=== PATIENT | female | born 1950 | race Caucasian/White ===

== ENCOUNTER 2023-08-04 06:26 | Day surgery (SDC) | payer BC, MEDICAID ==
[~2023-08-04] VITALS: Ht 162.6 cm; Wt 74.4 kg
[~2023-08-04 06:26] MED LIST: ACETAMINOPHEN 500 MG TABLET PO ONE; CEFAZOLIN SOD 2 GM in D5W 50 ML IV ONE; CELECOXIB 200 MG CAPSULE PO ONE; GABAPENTIN 400 MG CAPSULE PO ONE; ONDANSETRON 4 MG ODT TAB PO ONE; SCOPOLAMINE HYDROBROMIDE 1 MG PATCH .72 H (TRANSDERM-SCOP) TD ONE; VANCOMYCIN HCL 1,000 MG in NS 250 ML IV ONE; oxyCODONE HCL 10 MG TAB.ER.12H PO ONE
[2023-08-04] MEDS ORDERED: ONDANSETRON 4 MG ODT TAB ONE (06:43)
[2023-08-04] MEDS ORDERED: ACETAMINOPHEN 500 MG TABLET ONE (06:43)
[2023-08-04] MEDS ORDERED: SCOPOLAMINE HYDROBROMIDE 1 MG PATCH .72 H (TRANSDERM-SCOP) TD ONE ×2 (06:44→07:00)
[2023-08-04] MEDS ORDERED: GABAPENTIN 400 MG CAPSULE ONE (06:44)
[2023-08-04] MEDS ORDERED: oxyCODONE HCL 10 MG TAB.ER.12H PO ONE ×2 (06:45→07:00)
[2023-08-04] MEDS ORDERED: CELECOXIB 200 MG CAPSULE ONE (06:45)
[2023-08-04] MEDS ORDERED: VANCOMYCIN HCL 1,000 MG in NS 250 ML IV ONE (07:00)
[2023-08-04] MEDS ORDERED: CEFAZOLIN SOD 2 GM in D5W 50 ML IV ONE (07:00)
[2023-08-04] MEDS ORDERED: CELECOXIB 200 MG CAPSULE PO ONE (07:00)
[2023-08-04] MEDS ORDERED: ONDANSETRON 4 MG ODT TAB PO ONE (07:00)
[2023-08-04] MEDS ORDERED: GABAPENTIN 400 MG CAPSULE PO ONE (07:00)
[2023-08-04] MEDS ORDERED: ACETAMINOPHEN 500 MG TABLET PO ONE (07:00)
[2023-08-04 09:51] VITALS: PULSE 64; RESP 20; TEMP 97.3; O2SAT 100
[2023-08-04] MEDS ORDERED: LR 1,000 ML IV.SOLN IV ONE (10:36)
[2023-08-04] MEDS ORDERED: EPINEPHRINE HCL/PF 1 MG/ML AMP ONE (10:36)
[2023-08-04] MEDS ORDERED: KETOROLAC TROMETHAMINE 30 MG VIAL ONE (10:36)
[2023-08-04] MEDS ORDERED: VANCOMYCIN HCL 1000 MG/VIAL IV ONE (10:36)
[2023-08-04] MEDS ORDERED: POLYMYXIN B SULFATE 500,000 UNITS VIAL ONE (10:36)
[2023-08-04] MEDS ORDERED: SEVOFLURANE 15 MIN GAS INH ONE (10:36)
[2023-08-04] MEDS ORDERED: WATER FOR IRRIGATION,STERILE 1,000 ML IRRIG.SOLN IR ONE (10:36)
[2023-08-04] MEDS ORDERED: DEXAMETHASONE SOD PHOSPHATE 4 MG/ML VIAL ONE (10:36)
[2023-08-04] MEDS ORDERED: NS IRRIG SOLN 1000 ML IR ONE ×2 (10:36)
[2023-08-04] MEDS ORDERED: TRANEXAMIC ACID 1,000 MG/10 ML VIAL ONE (10:36)
[2023-08-04] MEDS ORDERED: ONDANSETRON HCL 4 MG/2 ML VIAL ONE (10:36)
[2023-08-04] MEDS ORDERED: ROPIVACAINE HCL/PF 5 MG/ML 0.5% 30 ML VIAL ONE (10:36)
[2023-08-04] MEDS ORDERED: PROPOFOL 200MG/ 20ML VIAL (DIPRIVAN) IV ONE (10:36)
[2023-08-04] MEDS ORDERED: ACETAMINOPHEN I.V. 1000 MG 100 ML IV ONE ×2 (12:13→13:00)
[2023-08-04] MEDS ORDERED: HYDROcodone/ACETAMIN 7.5-325 MG TAB PO PRN (12:45)
[2023-08-04] MEDS ORDERED: CEFAZOLIN 1 GM IVPB PREMIX 50 ML IV SCH (12:45)
[2023-08-04] MEDS ORDERED: ONDANSETRON HCL 4 MG/2 ML VIAL IVP PRN ×2 (12:45→13:00)
[2023-08-04] MEDS ORDERED: HYDROcodone/ACETAMIN 5-325 MG TAB (NORCO/ VICODIN) PO PRN (12:45)
[2023-08-04] MEDS ORDERED: HYDROmorphone 1 MG/ML INJ. CARTRIDGE IVP PRN (13:00)
[2023-08-04] MEDS ORDERED: METOCLOPRAMIDE HCL 10 MG/2 ML VIAL IVP PRN (13:00)
[2023-08-04] MEDS ORDERED: KETOROLAC TROMETHAMINE 30 MG VIAL IVP PRN (13:00)
[2023-08-04 13:45] VITALS: BP_SYST 127
[2023-08-04] MEDS ORDERED: HYDROmorphone 1 MG/ML INJ. CARTRIDGE ONE (17:05)
== END 2023-08-04 18:55 | disposition home or self-care (01) ==
LOC: SDS 06:26 → SMU 06:31 → SDS 18:55
PROVIDERS: ATTEND Orthopaedic Surgery
DX: M17.11 Unilateral primary osteoarthritis, right knee (principal); I12.9 Hypertensive chronic kidney disease with stage 1 through stage 4 chronic kidney disease, or unspecified chronic kidney disease; N18.30 Chronic kidney disease, stage 3 unspecified; M81.0 Age-related osteoporosis without current pathological fracture; Z79.82 Long term (current) use of aspirin; Z79.899 Other long term (current) drug therapy
CPT/HCPCS: 27447; 97162; 86886; 86900; 86901; 36415; 73560; 97110; 97530; 97116; 88305; 88311; 64447; Q0162; J0690; J1100; J0171; J1885; J2405; J2704; J3370; J1170; J3490; J7060; J7120; J7050; A4649; C1713 ×2; C1776; J0131